=== PATIENT | male | born 1955 | race Caucasian/White ===

== ENCOUNTER 2020-02-12 11:27 | Observation (INO) | payer OTHER ==
[~2020-02-12] VITALS: Ht 182.9 cm; Wt 118.6 kg
[~2020-02-12 11:27] MED LIST: KEFLEX500 MG PO; MULTI VITAMINS1 TAB PO; NEXIUM40 MG PO; SELENIUM SULFI TP; SIMVASTATIN40 MG PO; SYNTHROID0.1 MG PO; TRICOR48 MG PO; VICODIN 5/500 505 MG PO; VITAMIN C PO; VITAMIN E1000 IU PO; WELLBUTRIN XL300 MG PO
[2020-02-12 11:55] VITALS: BP 133/91
--- NOTE | 2020-02-12 11:56 | NUR ---
PATIENT DENIES WOUNDS A&OX4.
[2020-02-12 11:59] VITALS: BP 133/91
[2020-02-12 12:02] LABS: BASO # 0.1 10*3/uL (0.0-0.1); EOS # 0.2 10*3/uL (0.0-0.4); HEMATOCRIT 47.6 % (42.0-52.0); LYMPH # 1.8 10*3/uL (1.3-4.4); LYMPH % 28.7 % (27.0-41.0); MEAN CELL VOLUME 93.7 fl (80.0-94.0); MEAN CORPUSCULAR HGB 31.7 pg (27.0-31.0); MEAN CORPUSCULAR HGB CONC 33.8 g/dl (33.0-37.0); MEAN PLATELET VOLUME 9.9 fl (9.6-12.3); MONO # 0.6 10*3/uL (0.1-1.0); MONO % 8.8 % (3.0-9.0); NEUT # 3.6 10*3/uL (2.3-7.9); NEUT % 58.2 % (47.0-73.0); PLATELET COUNT AUTOMATED 300 10*3/uL (130-400); RED BLOOD COUNT 5.08 10*6/uL (4.50-5.90); RED CELL DISTRI WIDTH 12.6 % (0-14.5); WHITE BLOOD COUNT 6.2 10*3/uL (4.8-10.8)
[2020-02-12 12:14] LABS: ACT PARTIAL THROMBO TIME 27.9 SECONDS (20.0-32.1)
[2020-02-12 12:21] LABS: ALKALINE PHOSPHATASE 42 U/L (45-117); BUN 17 mg/dl (7-24); CHLORIDE 110 mmol/L (98-107); CREATININE 1.25 mg/dL (0.70-1.30); LIPASE 165 U/L (73-393); POTASSIUM 4.2 mmol/L (3.5-5.1); SGOT/AST 52 IU/L (3-35); SGPT/ALT 78 U/L (12-78); SODIUM 142 mmol/L (136-145); TOTAL PROTEIN 7.9 gm/dL (6.4-8.2)
[2020-02-12 12:22] LABS: TROPONIN I < 0.015 ng/ml (<0.045)
--- NOTE | 2020-02-12 14:45 | NUR ---
PATIENT TAKEN TO 4TH FLOOR BY THIS NURSE. REPORT GIVEN TO TOAN WEBSTER AT BEDSIDE. PATIENT AMBULATED WELL INTO ROOM BY SELF.
[2020-02-12 14:52] VITALS: BP 135/97
[2020-02-12] MEDS ORDERED: FIBER GUMMIES2 GM PO (15:10)
[2020-02-12] MEDS ORDERED: FISH OIL 1,0001 EAC4 PO (15:10)
[2020-02-12] MEDS ORDERED: ASPIRIN ADULT L81 M2 PO (15:11)
[2020-02-12] MEDS ORDERED: MELATONIN5 M1 SL (15:13)
[2020-02-12 16:00] VITALS: BP 135/97
[2020-02-12 20:00] VITALS: BP 104/59
--- NOTE | 2020-02-12 20:30 | NUR ---
IN TO ASSESS PATIENT. PATIENT HAS NO COMPLAITNS AT THIS CURRENT TIME. DENIES CP. DENIES SOB. DENIES JAW PAIN CURRENTLY. STATES HE DOES GET MILDLY DIZZY WHEN HE MOVES TO THE LEFT SIDE. STATED THAT HE IS PRONE TO SINUS INFECTIONS WELL AND THAT HE HAS TO FOLLOW UP WITH AN OUTPATIENT ENT DOCTOR FOR HIS VERTIGO, BUT WHEN HE HAD THE JAW PAIN IT WORRIED HIM. PATIENT AWARE OF STRESS TEST IN AM. WILL CONTINUE TO MONITOR
--- NOTE | 2020-02-12 23:00 | NUR ---
PATIENT SLEEPING, NO DISTRESS NOTED. BREATHING IS EASY AND REGULAR. CALL LIGHT WTIHIN REACH, WILL MONITOR
[2020-02-13] VITALS: BP 113/79
--- NOTE | 2020-02-13 02:11 | NUR ---
PATIENT SLEEPING, NO DISTRESS NOTED. BREATHING IS EASY AND REGULAR ON ROOM AIR. CALL LIGHT WITHIN REACH, WILL MONITOR
--- NOTE | 2020-02-13 04:12 | NUR ---
24 HR chart check completed.
--- NOTE | 2020-02-13 05:13 | NUR ---
OK PER DR. DANIELS TO TAKE HIS MONITOR OFF TO GET A SHOWER FOR HIS STRESS TEST
[2020-02-13 06:40] LABS: ACT PARTIAL THROMBO TIME 27.1 SECONDS (20.0-32.1)
[2020-02-13 07:24] LABS: BASO # 0.1 10*3/uL (0.0-0.1); BASO % 0.9 % (0.0-1.0); EOS # 0.2 10*3/uL (0.0-0.4); EOS % 2.8 % (1.0-4.0); HEMATOCRIT 47.4 % (42.0-52.0); LYMPH % 29.5 % (27.0-41.0); MEAN CELL VOLUME 93.7 fl (80.0-94.0); MEAN CORPUSCULAR HGB 31.2 pg (27.0-31.0); MEAN CORPUSCULAR HGB CONC 33.3 g/dl (33.0-37.0); MEAN PLATELET VOLUME 10.4 fl (9.6-12.3); MONO # 0.7 10*3/uL (0.1-1.0); MONO % 10.5 % (3.0-9.0); NEUT # 3.8 10*3/uL (2.3-7.9); PLATELET COUNT AUTOMATED 309 10*3/uL (130-400); RED BLOOD COUNT 5.06 10*6/uL (4.50-5.90); RED CELL DISTRI WIDTH 12.7 % (0-14.5); WHITE BLOOD COUNT 6.7 10*3/uL (4.8-10.8)
[2020-02-13 07:43] LABS: ALBUMIN 3.7 gm/dl (3.1-4.5); BUN 18 mg/dl (7-24); CHLORIDE 110 mmol/L (98-107); CHOLESTEROL 138 mg/dL (<200); CREATININE 1.23 mg/dL (0.70-1.30); POTASSIUM 3.7 mmol/L (3.5-5.1); SGOT/AST 38 IU/L (3-35); SGPT/ALT 73 U/L (12-78); SODIUM 141 mmol/L (136-145); TOTAL PROTEIN 7.2 gm/dL (6.4-8.2); TRIGLYCERIDES 156 mg/dl (<150); VLDL CHOLESTEROL 31 mg/dL (6-40)
[2020-02-13 07:50] LABS: ALKALINE PHOSPHATASE 42 U/L (45-117); FREE T4 1.07 ng/dl (0.76-1.46); HDL CHOLESTEROL 36 mg/dl (40-60); LDL CHOLESTEROL 71 mg/dL (9-159); THYROID STIM HORMONE (HS) 0.666 uIU/ml (0.358-4.75)
[2020-02-13 08:00] VITALS: BP 124/78
[2020-02-13 08:18] LABS: VITAMIN D, 25-HYDROXY 33.2 ng/mL (30-100)
--- NOTE | 2020-02-13 08:30 | NUR ---
Night Club Manager in to talk to patient. Patient states lives at home with his . There are basement steps in the home. Physician: Dr. Bob Meyer Pharmacy: [facility] Home health services: none Patient's level of ADLs: INDEPENDENT Patient has working utilities: yes DME: none Follow-up physician's appointment after d/c: will be made by the hospitalist nurse director upon discharge Does patient want to access PORTAL?: no Discharge plan discussed with patient. He lives at home with his . He is independent in his ADLs and ambulation. Discussed home health care services and he declines. CM will continue to follow for any discharge planning needs. He states his will provide transportation on discharge. He is awaiting his stress test this morning. SANDEEP SILVERMAN
--- NOTE | 2020-02-13 12:10 | NUR ---
INFORMED SIGNED CONSENT OBTAINED FOR CGXT WITH DR LYNN. RESTING EKG NSR WITH PVC HR 73 BP 130/74 IN SUPINE POSTION, STANDING HR 79 BP 124/70. PT COMPLETED 7:20 OF A JESUS PROTOCOL WITH PT COMPLETING 1:20 OF STAGE III AT 3.4 MPH AND A 14% GRADE. PT REACHED A PEAK HR OF 149 WHICH REPRESENTS 94% IF PREDICTED MAXIMUM AND A PEAK BP OF 148/88. PVC'S AND NON DIAGNOSTIC ST CHANGES NOTED. TEST TERMINATED DUE TO FAIGUT, LAST RECOVERY HR OF 105 BP 148/88. PT IN STABLE CONDITION, AWIATING NUCLEAR IMAGES.
[2020-02-13 13:30] VITALS: BP 132/84
[2020-02-13] MEDS ORDERED: COZAAR100 MG PO (15:09)
--- NOTE | 2020-02-13 15:40 | NUR ---
Discharge instructions reviewed with patient/family. Patient receptive and verbalizes understanding. Follow-up care arranged. Written instructions given to patient/family, IV REMOVED, TELEMETRY ACCOINTED FOR, REFUSED W/C FOR DISCHARGE. TOAN ZAMORA
== END 2020-02-13 15:40 | disposition home or self-care (01) ==
LOC: ED 11:27 → EDHOLD 13:31 → 4E 13:31
PROVIDERS: Emergency Medicine; Hospitalist; ADMIT Family Medicine; ATTEND Family Medicine
DX: I20.8 Other forms of angina pectoris (principal); R42 Dizziness and giddiness; R79.82 Elevated C-reactive protein (CRP); E83.41 Hypermagnesemia; E87.8 Other disorders of electrolyte and fluid balance, not elsewhere classified; R74.01 Elevation of levels of liver transaminase levels; R74.8 Abnormal levels of other serum enzymes; I10 Essential (primary) hypertension; E03.9 Hypothyroidism, unspecified; E78.5 Hyperlipidemia, unspecified; K21.9 Gastro-esophageal reflux disease without esophagitis